=== PATIENT | female | born 1995 | race Caucasian/White ===

== ENCOUNTER 2018-01-04 20:03 | Inpatient (IN) ==
[2018-01-04 20:55] VITALS: BMI 36.3
[2018-01-05] MEDS ORDERED: CALCIUM CARBONATE Chewable 500mg TABLET PO ONE
[2018-01-05] MEDS: LR 1,000 ML IV SCH ×3 (01:40→11:40)
[2018-01-05] MEDS ORDERED: FAMOTIDINE PB 20 MG/50 ML BAG IV ONE (07:00)
[2018-01-05] MEDS ORDERED: CITRIC ACID/SODIUM CITRATE 30ml PO ONE (07:00)
[2018-01-05] MEDS ORDERED: CEFAZOLIN PREMIX (MC ONLY) 2 GM/50 ML BAG IV ONE (07:00)
[2018-01-05] MEDS ORDERED: MORPHINE SULFATE PF 5mg/10ml INJ (Duramorph) ONE (11:20)
[2018-01-05] MEDS ORDERED: FentaNYL 100 MCG/2 ML INJECTION ONE (11:20)
[2018-01-05] MEDS ORDERED: SALINE FLUSH 10ml SYRINGE ONE ×2 (11:21→11:47)
[2018-01-05] MEDS ORDERED: ONDANSETRON 4 MG/2 ML INJECTION ONE (11:21)
[2018-01-05] MEDS ORDERED: EPHEDRINE 50mg/ml INJECTION ONE (11:21)
[2018-01-05] MEDS ORDERED: LIDOCAINE 2% (100mg/5mL) 5ml PF SDV ONE (11:40)
[2018-01-05] MEDS ORDERED: PHENYLEPHRINE INJ 10 MG/ML VIAL IV ONE (11:46)
[2018-01-05] MEDS ORDERED: TRANEXAMIC ACID 1,000 MG in NS 100 ML IV ONE (12:07)
[2018-01-05] MEDS ORDERED: OXYTOCIN BOLUS BAG 30 UNIT/500 ML ML IV SCH (12:15)
--- NOTE | 2018-01-05 12:43 | Anesthesia Preoperative Report ---
Anesthesia Preoperative Record - Date and Time Date: 01/05/18 Preoperative Diagnosis: with Headache Proposed Procedure: repeat c section NPO Since Date: 01/04/18 NPO Since Time: 23:00 Allergies/Adverse Reactions: Allergies Allergy/AdvReac Type Severity Reaction Status Date / Time No Known Allergies Allergy Verified 01/05/18 12:02 - Vital Signs Height and Weight: Height 5 ft 4 in Weight 95.9 kg Body Mass Index 36.3 - Medications Inpatient Medications: Current Medications Lactated Ringer's (Lactated Ringers) 1,000 mls @ 125 mls/hr IV .Q8H COUNTS INCLUDE 234 BEDS AT THE [facility] Last Admin: 01/05/18 11:40 Dose: 125 mls/hr Tranexamic Acid 1,000 mg/ (Sodium Chloride) 110 mls @ 660 mls/hr IV INTRAOP ONE Stop: 01/05/18 12:16 Last Admin: 01/05/18 12:06 Dose: 660 mls/hr Oxytocin (Pitocin Bolus Bag) 30 unit in 500 mls @ 999 mls/hr IV .Q31M COUNTS INCLUDE 234 BEDS AT THE [facility] Stop: 01/05/18 12:45 Last Admin: 01/05/18 12:07 Dose: 999 mls/hr Home Medications: Home Medications Medication Instructions Recorded Confirmed Type Omeprazole Magnesium [Prilosec Otc] 20 mg PO DAILY 12/26/17 History Pnv No.95/Ferrous Fum/Folic AC 1 tab PO DAILY 12/26/17 History [ Tablet] raNITIdine HCl [Zantac 75] 75 mg PO DAILY 12/26/17 History Is Patient on Beta Debbie?: No - Medical History Cardiovascular: DENIES: Hypertension Gastrointestional: Reports: Gastroesophageal Reflux Disease Neuro/Musculoskeletal: Reports: Back Problems, Other (SI joint pain) Other History: Reports: Now (ESTIMATED DUE DATE 01/06/18) DENIES: Anesthesia Reactions - Surgical History Reproductive Surgery/Treatment: Reports: Section DENIES: Hysteroscopy Anesthesia Reactions: None Hx Family Anesthesia Reaction: No History of Motion Sickness: No - Social History Smoking Status: Never smoker Hx Chewing Tobacco Use: No Second Hand Exposure: No - Pertinent Findings Laboratory: CBC and BMP 01/04/18 20:38 01/04/18 20:38 BMP 01/04/18 20:38 Sodium 140 Potassium 4.0 Chloride 109 H Carbon Dioxide 21 L BUN 9.0 Creatinine 0.6 L Glucose 116 H Calcium 10.0 Liver Function 01/04/18 Range/Units 20:38 Total Bilirubin < 0.10 L (0.20-1.30) MG/DL AST 14 (14-36) U/L ALT 11 (1-35) U/L Alkaline Phosphatase 114 (38-126) U/L Albumin 3.3 L (3.5-5.0) g/dL Urine 01/04/18 Range/Units 20:32 Urine Color Yellow (YELLOW) Urine Clarity Cloudy Urine pH 7.0 (5.0-8.0) Ur Specific [place] 1.015 (1.015-1.025) Urine Protein Negative (NEGATIVE) Urine Glucose (UA) Negative (NEGATIVE) EKG: Sinus Tachycardia - Physical Exam Respiratory Exam: Present: lungs clear, bilateral breath sounds equal Cardiovascular Exam: Present: regular rate and rhythm - Airway Assessment Mallampati Score: II TMD: 3 Fingerbreadths Neck Extension: good Overall Assessment: no airway concerns - ASA ASA Score: 2 - Plan Anesthesia: Neuroaxial Regional/Trunk Block: Spinal - Discussion Discussion: Discussed risks/options/alternatives of anesthesia and questions answered. Patient consents. Nursing pain assessment noted. Present for Discussion: spouse Attestation Statement: Prior to the delivery of any anesthetic medication, I examined the patient, developed the plan, obtained the patient's consent and discussed the risk and benefits of the procedure with the patient/guardian. - Additional Information Seen by Anesthesia: Yes
[2018-01-05] MEDS ORDERED: NALOXONE 2 MG/2 ML INJECTION PFS IVP PRN (12:45)
[2018-01-05] MEDS ORDERED: DiphenhydrAMINE 25 MG CAPSULE PO PRN (13:07)
[2018-01-05] MEDS ORDERED: SIMETHICONE 80 MG CHEWABLE TABLET PO PRN (13:07)
[2018-01-05] MEDS ORDERED: HYDROCORTISONE 2.5% CREAM 30gm RECTALLY PRN (13:07)
[2018-01-05] MEDS ORDERED: D5LR 1,000 ML IV SCH (13:07)
[2018-01-05] MEDS ORDERED: CALCIUM CARBONATE Chewable 500mg TABLET PO PRN (13:07)
[2018-01-05] MEDS ORDERED: OXYTOCIN DRIP 30 UNIT/500 ML ML IV SCH (13:07)
[2018-01-05] MEDS ORDERED: ACETAMINOPHEN 500 MG TABLET PO PRN (13:07)
[2018-01-05] MEDS: HYDROCODONE/APAP 5mg/325mg TABLET PO PRN ×2 (14:22→15:10)
[2018-01-05] MEDS: IBUPROFEN 800 MG TABLET PO PRN ×2 (14:23→22:56)
[2018-01-05] MEDS: SIMETHICONE 80 MG CHEWABLE TABLET PO SCH ×3 (15:43→20:01)
[2018-01-05] MEDS: Oxycodone/Acetaminophen 5/325 1 TAB PO PRN ×2 (19:05→22:57)
--- NOTE | 2018-01-05 20:10 | Operative Note ---
DATE OF SURGERY 01/05/2018 PREOPERATIVE DIAGNOSES 1. Term , previous x 2. 2. Undesired fertility. 3. Preeclampsia with mild features. POSTOPERATIVE DIAGNOSES 1. Term , previous x 2. 2. Undesired fertility. 3. Preeclampsia with mild features. PROCEDURES Repeat low transverse section and bilateral tubal ligation ( modified [place]). SURGEON Chen Castanon MD TURN LASTER Robinson King, ANESTHESIA Combo spinal/epidural by Pradeep Yuen CRNA EBL 1000 mL. DESCRIPTION OF PROCEDURE Ms. Chilel was brought to the OR and given regional analgesia to good effect. She was placed on the OR table in supine position with left lateral displacement. A Braden catheter was placed to dependent drain. The abdomen was prepped and draped in the usual sterile fashion. A Pfannenstiel skin incision was made with a sharp knife. This was carried down to fascia. Fascia was incised transversely. Fascia was then then tented up. It was bluntly and sharply dissected free of the rectus muscles. Rectus muscles were bluntly divided. The peritoneum was tented up and sharply entered. This was then extended vertically. The bladder blade was inserted. Vesicouterine fold of peritoneum was tented up and then a transverse incision made. A bladder flap was then bluntly created. The bladder blade was reinserted. A low transverse uterine incision was made with a sharp knife. There was a loose nuchal cord x 1 that was reduced prior to delivery of the head. Baby was bulb suctioned, the 's head was delivered and then the baby was delivered in total. Baby was further bulb suctioned. Cord was doubly clamped and cut and the baby was given to the pediatric team for care. This is a liveborn male with Apgars of 8/9/9/. He weighed 8 pounds, 15.7 ounces. The placenta was then expressed intact. It had a normal configuration and normal-appearing three-vessel cord. The uterus was exteriorized and swept clear of membranes. The myometrial incision was then reapproximated with a running, locking 0-Monocryl. There was a small area of bleeding that we noticed along the rectus muscle at this time. It was secured with a [id number] suture of 3-0 chromic. We inspected our myometrial incision - it was hemostatic. We turned our attention to the tubal ligation. The left fallopian tube was visualized to its fimbria. It was grasped at its midpoint with a Irvin clamp. A knuckle of tube was then isolated with a simple ligature of 2-0 chromic. The mesosalpinx was pierced with a clamp and two simple ligatures of 2-0 silk were placed on either side of the previous ligature. The section of tube was then excised and sent to Pathology for inspection. The stumps were carefully evaluated and found to be hemostatic. We then repeated the procedure in the exact same fashion on the right fallopian tube. We reinspected for hemostasis at all operative sites and returned the uterus to the abdominal cavity. We then reinspected our tubal sites and myometrial incision - these were hemostatic. We continued our closure. The peritoneum was reapproximated with running, nonlocking 2-0 Vicryl. Fascia was reapproximated with a running, nonlocking 0 Vicryl. Skin edges were then reapproximated with a subcuticular style 3-0 undyed Vicryl. The wound was dressed with Steri-Strips and sterile dressing. Counts were correct postoperatively x 2. The urine remained clear and free-flowing throughout the procedure. Ms. Chilel was then transferred to recovery in stable condition. PERFECTO
[2018-01-06] MEDS: Oxycodone/Acetaminophen 5/325 1 TAB PO PRN ×5 (03:38→20:50)
--- NOTE | 2018-01-06 07:13 | OB/GYN Progress Note ---
OB-PP Progress Note - General PPD1 Maternal Group B Strep: Positive Maternal blood type: B+ Maternal Rubella Status: Immune - Subjective Date: 01/06/18 Lochia: Minimal Pain: controlled Voiding: portillo still in place Nausea or Vomiting Present: No - Objective Vital Signs: Last Vital Signs Temp 98 F 01/06/18 04:50 Pulse 94 01/06/18 04:50 Resp 16 01/06/18 04:50 BP 107/65 01/06/18 04:50 Pulse Ox 95 01/06/18 04:50 Abdomen: fundus firm, non-tender Incision: dry, dressed Laboratory: Laboratory Results - last 24 hr 01/05/18 17:58 WBC 12.6 H D RBC 4.02 Hgb 10.8 L Hct 33.2 L MCV 82.6 MCH 26.9 MCHC 32.5 RDW Std Deviation 39.5 Plt Count 128 L MPV 11.7 - Assessment Assessment: SP, Repeat C/S, Tubal Ligation - Plan Plan: routine care Expected date of discharge: 01/07/18
[2018-01-06] MEDS: DOCUSATE CALCIUM 240 MG CAPSULE PO SCH (08:10)
[2018-01-06] MEDS: IBUPROFEN 800 MG TABLET PO PRN ×2 (08:12→16:32)
--- NOTE | 2018-01-06 10:20 | Anesthesia Postoperative Note ---
- Date and Time Date: 01/06/18 Time: 10:18 - Status Patient Participated in Evaluation: Patient Participated in Person Vital Signs: Temperature 97.3 F 01/06/18 08:00 Pulse Rate 93 01/06/18 08:00 Respiratory Rate 18 01/06/18 08:00 Blood Pressure 131/70 01/06/18 08:00 Pulse Oximetry 95 01/06/18 08:00 Respiratory Function: Airway Patent, Regular Respirations Cardiovascular Function: Regular Pulse Mental Status: Alert and Oriented Pain Intensity: 0 Hydration: Taking PO Fluids Complications During Recover: None Apparent - Follow-Up Instructions Instructions: Per Surgeon
[2018-01-06] MEDS: SIMETHICONE 80 MG CHEWABLE TABLET PO SCH ×3 (11:37→20:51)
[2018-01-07] MEDS: Oxycodone/Acetaminophen 5/325 1 TAB PO PRN ×4 (00:50→13:42)
[2018-01-07] MEDS: IBUPROFEN 800 MG TABLET PO PRN ×2 (00:51→09:34)
[2018-01-07] MEDS: SIMETHICONE 80 MG CHEWABLE TABLET PO SCH ×3 (00:51→13:42)
[2018-01-07 05:51] VITALS: RESP 18
[2018-01-07] MEDS: DOCUSATE CALCIUM 240 MG CAPSULE PO SCH (09:34)
[2018-01-07 09:39] VITALS: BP 127/74; PULSE 103; TEMP 98.5; O2SAT 98
--- NOTE | 2018-01-07 12:55 | OB/GYN Progress Note ---
OB-PP Progress Note - General PPD2 POD:: POD2 Maternal Group B Strep: Positive Maternal blood type: B+ Maternal Rubella Status: Immune - Subjective Date: 01/07/18 Lochia: Minimal Pain: controlled Voiding: voiding Nausea or Vomiting Present: No - Objective Vital Signs: Last Vital Signs Temp 98.5 F 01/07/18 08:30 Pulse 103 H 01/07/18 08:30 Resp 18 01/07/18 08:30 BP 127/74 01/07/18 08:30 Pulse Ox 98 01/07/18 08:30 Urine Output: good General: alert and oriented Cardiovascular: regular rate,rhythm Respiratory: non-labored Respiratory Auscultation: clear bilaterally Abdomen: fundus firm, non-tender Incision: normal, clean, dry, skin Extremities: non-tender Edema: none - Assessment Assessment: SP, Repeat C/S, Tubal Ligation - Plan Plan: routine care, discharge home Expected date of discharge: 01/07/18
== END 2018-01-07 14:40 | disposition home or self-care (01) | DRG 766 ==
LOC: OBOBS 20:03 → MC 20:03
PROVIDERS: ADMIT Obstetrics & Gynecology; ATTEND Obstetrics & Gynecology